=== PATIENT | female | born 1950 | race African-American/Black ===

== ENCOUNTER → 2017-10-10 | Outpatient (CLI) | payer MEDICARE | END | disposition home or self-care (01) | LOC: KCIC MAMMO 15:15 | DX: Z12.31 Encounter for screening mammogram for malignant neoplasm of breast (principal) | CPT/HCPCS: 77063; G0202 ==

== ENCOUNTER → 2017-10-21 | Outpatient (CLI) | payer MEDICARE | END | disposition home or self-care (01) | LOC: US 09:25 | DX: D35.00 Benign neoplasm of unspecified adrenal gland (principal); K76.0 Fatty (change of) liver, not elsewhere classified; N28.89 Other specified disorders of kidney and ureter | CPT/HCPCS: 76700 ==

== ENCOUNTER → 2017-10-27 | Outpatient (CLI) | payer MEDICARE | END | disposition home or self-care (01) | LOC: KCIC US 12:37 | DX: N63.20 Unspecified lump in the left breast, unspecified quadrant (principal) | CPT/HCPCS: 76641 ==

== ENCOUNTER → 2018-03-31 | Outpatient (CLI) | payer MEDICARE | END | disposition home or self-care (01) | LOC: KCIC US 08:35 | DX: N63.22 Unspecified lump in the left breast, upper inner quadrant (principal); R22.1 Localized swelling, mass and lump, neck | CPT/HCPCS: 76536; 76641 ==

== ENCOUNTER → 2018-09-22 | Outpatient (CLI) | payer MEDICARE ==
[2016-01-25 05:23] VITALS: BP 199/96
--- NOTE | 2018-09-22 15:31 | KCIC ---
DATE: 09/22/2018 EXAM: MAMMO LUIS BEN SILVER, left breast ultrasound HISTORY: Follow-up nodule COMPARISON: 10/10/2017 This study was interpreted with the benefit of Computerized Aided Detection (CAD). Breast Density: SCATTERED The breast parenchyma shows scattered fibroglandular densities. Breast parenchyma level B. FINDINGS: 2-D and 3-D tomosynthesis imaging was performed in CC and MLO projections. A small lobulated nodule is again noted in the left breast located just medial to the midline. It measures 8 mm on CC luis image #[id number]. It is stable to perhaps slightly decreased in size when compared to the 10/10/2017 exam. No new or enlarging breast densities are seen. Benign type calcifications are present. No suspicious microcalcifications have developed. Left breast ultrasound, 09/22/2018: A targeted ultrasound exam of the left breast was performed and compared to the prior exam of 03/31/2018. A well-defined bilobed hypoechoic structure is again noted at the 10:00 location proximal to 7 cm from the nipple. There are low level internal echoes with posterior acoustic enhancement. No internal blood flow is seen. This process is wider than tall. This probably represents a cluster of complicated cysts. It has shown no significant change measuring approximately 8 x 4 x 4 mm. No other abnormality is seen in this region of the left breast. IMPRESSION: 1. Stable benign-appearing left breast nodule. Sonographic follow-up in 6 months and bilateral mammography at one year is suggested. 2. No mammographic evidence of malignancy in either breast. BI-RADS CATEGORY: 3 PROBABLY BENIGN FINDING(S)-SHORT INTERVAL FOLLOW-UP SUGGESTED RECOMMENDED FOLLOW-UP: 6M 6 MONTH FOLLOW-UP PQRS compliance statement: Patient information was entered into a reminder system with a target due date for the next mammogram. Mammography is a sensitive method for finding small breast cancers, but it does not detect them all and is not a substitute for careful clinical examination. A negative mammogram does not negate a clinically suspicious finding and should not result in delay in biopsying a clinically suspicious abnormality. "Our facility is accredited by the [employer] Mammography [employer]."
== END | disposition home or self-care (01) ==
LOC: KCIC MAMMO 08:24
PROVIDERS: ATTEND Family Medicine
DX: R92.8 Other abnormal and inconclusive findings on diagnostic imaging of breast (principal)
CPT/HCPCS: 76641; 77066; G0279; 77062

== ENCOUNTER → 2018-11-18 | Outpatient (CLI) | payer MEDICARE ==
[2016-01-25 05:23] VITALS: BP 199/96
--- NOTE | 2018-11-18 12:12 | KCIC ---
2 view left tibia and fibula 11/18/2017 CLINICAL INDICATION: Left leg pain, chronic pain. COMPARISON: None. FINDINGS: No acute fracture or traumatic malalignment of the tibia or fibular diaphyses. The visualized soft tissues are unremarkable. Mild medial tibiotalar osteoarthritis with osteophytic spurring and joint space narrowing. The visualized soft tissues are unremarkable. IMPRESSION: No acute osseous abnormality. Electronically signed by: Griffin Osborne MD (11/18/2018 12:07 PM) [facility]
== END | disposition home or self-care (01) ==
LOC: KCIC 10:38
PROVIDERS: ATTEND Family Medicine
DX: M19.072 Primary osteoarthritis, left ankle and foot (principal)
CPT/HCPCS: 73590

== ENCOUNTER → 2019-03-11 | Outpatient (CLI) | payer MEDICARE ==
[2016-01-25 05:23] VITALS: BP 199/96
--- NOTE | 2019-03-11 13:13 | KCIC ---
EXAM: CT Abdomen without IV contrast CLINICAL HISTORY: Right adrenal mass, post right adrenalectomy.. COMPARISON: none TECHNIQUE: Helical CT of the abdomen without intravenous contrast. Axial, coronal and sagittal reformatted images were generated. PQRS compliance statement - One or more of the following individualized dose reduction techniques were utilized for this study: 1. Automated exposure control 2. Adjustment of the mA and/or kV according to patient size 3. Use of iterative reconstruction technique FINDINGS: Lack of intravenous contrast limits evaluation of solid organs, vasculature, and lymph nodes. Lower chest: Right lower lobe calcified granuloma. Abdomen: Spleen is unremarkable. No focal liver lesion. High density material layering dependently within the gallbladder likely sludge. No biliary ductal dilatation. Pancreas is unremarkable. Left adrenal gland is normal. There has been resection of the right adrenal gland. The residual or recurrent mass is seen within the right adrenal fossa. No focal renal lesion. No hydronephrosis. No hydroureter. Suture line is seen along the greater curvature of the stomach, postsurgical. Small hiatal hernia. Moderate colonic stool content is seen within the visualized portion of the bowel. The visualized small and large bowel remain normal in caliber. Bones: Degenerative changes of the spine are seen. No aggressive osseous lesion is noted. Anterolisthesis of L4 on L5. IMPRESSION: The right adrenal gland has been resected without residual or recurrent mass in the surgical bed. Electronically signed by: Nehemiah Carpenter MD (03/11/2019 1:10 PM) [id number]
== END | disposition home or self-care (01) ==
LOC: KCIC CT 11:10
PROVIDERS: ATTEND Family Medicine
DX: K44.9 Diaphragmatic hernia without obstruction or gangrene (principal); J84.10 Pulmonary fibrosis, unspecified; M47.819 Spondylosis without myelopathy or radiculopathy, site unspecified; M43.16 Spondylolisthesis, lumbar region; E89.6 Postprocedural adrenocortical (-medullary) hypofunction; Z86.018 Personal history of other benign neoplasm
CPT/HCPCS: 74150

== ENCOUNTER → 2019-06-07 | Outpatient (CLI) | payer MEDICARE ==
[2016-01-25 05:23] VITALS: BP 199/96
--- NOTE | 2019-06-07 15:23 | KCIC ---
Left breast ultrasound: Reason for examination: Follow-up nodules. Comparison is made to previous studies dated 09/22/2018, 03/31/2018 and 10/27/2017. Ultrasound examination was performed with attention to the area of previous concern and the axilla. In the 10:00 position 7 cm from the nipple, there continues to be 7.9 mm bilobed cystic lesion which is unchanged. No new cystic or solid nodules are seen. No abnormal appearing lymph nodes are seen in the axilla. IMPRESSION: Bilobed cystic lesion at the 10:00 position without interval change. Recommend routine mammographic follow-up. BI-RADS Category 2: Benign. "Our facility is accredited by the [employer] Mammography Program." This patient's information has been entered into a reminder system for the patient to be notified with the results of her examination and a target date for the next mammogram. Electronically signed by: Keely Glover MD (06/07/2019 3:20 PM) [id number]
== END | disposition home or self-care (01) ==
LOC: KCIC US 13:19
PROVIDERS: ATTEND Family Medicine
DX: N64.89 Other specified disorders of breast (principal)
CPT/HCPCS: 76641

== ENCOUNTER → 2019-09-29 | Outpatient (CLI) | payer MEDICARE ==
[2016-01-25 05:23] VITALS: BP 199/96
--- NOTE | 2019-09-29 16:18 | KCIC ---
Bone densitometry 09/29/2019 9:00 AM Indication: Postmenopausal syndrome Comparison Study: Bone densitometry September 23, 2016. Discussion: Bone Densitometry was performed with dual photon absorption of the lumbar spine and proximal left femur. Lumbar Spine: Bone average density is 1.410g/cm2 for L1-L4. T-Score is 3.3. (Prior T score 3.5) Left proximal femur: Bone average density is 1.116g/cm2. T-Score is 1.4. (Prior T score 1.8) IMPRESSION: Normal bone mineral density Note: Definitions established by the World Health Organization: Normal: T-score is -1.0 or above. Osteopenia: T-score is between -1.0 and -2.5. Osteoporosis: T-score is -2.5 or below. Electronically signed by: Elian Solis MD (09/29/2019 4:15 PM) [id number]
== END | disposition home or self-care (01) ==
LOC: KCIC DEXA 09:08
PROVIDERS: ATTEND Family Medicine
DX: Z13.820 Encounter for screening for osteoporosis (principal); Z78.0 Asymptomatic menopausal state
CPT/HCPCS: 77080

== ENCOUNTER → 2020-01-04 | Outpatient (CLI) | payer MEDICARE ==
[2016-01-25 05:23] VITALS: BP 199/96
--- NOTE | 2020-01-04 10:57 | KCIC ---
AP and Lateral Views of the Chest 01/04/2020 12:00 AM Indication: Fever, chills, cough. Comparison: Chest radiograph June 25, 2017 Findings: There is no focal consolidation or infiltrate identified. The cardiomediastinal silhouette is within normal limits. There is no evidence of pneumothorax or pleural effusion. No acute osseous abnormalities are identified. Impression: No evidence of acute cardiopulmonary process. Electronically signed by: Elian Solis MD (01/04/2020 10:54 AM) [id number]
== END | disposition home or self-care (01) ==
LOC: KCIC 10:16
PROVIDERS: ATTEND Family Medicine
DX: R50.9 Fever, unspecified (principal); R05 Cough
CPT/HCPCS: 71046

== ENCOUNTER → 2020-04-13 | Outpatient (CLI) | payer MEDICARE ==
[2016-01-25 05:23] VITALS: BP 199/96
--- NOTE | 2020-04-13 14:31 | RAD ---
DATE: 04/13/2020 1:41 PM EXAM: DIGITAL DIAGNOSTIC BILATERAL HISTORY: 69-year-old woman due for screening presents for follow-up of left breast findings by request of her referring physician. COMPARISON: Bilateral mammograms of 10/10/2017 and 09/22/2018 along with left breast ultrasound of 06/07/2019 TECHNIQUE: Bilateral CC and MLO views of the breasts were performed. Bilateral breast tomosynthesis was performed in CC and MLO projections. This study was interpreted with the benefit of Computerized Aided Detection (CAD). FINDINGS: Breast Density: FATTY The Breast Parenchyma is primarily fatty replaced. Breast parenchyma level density A. The right mammogram is negative. Left mammogram shows marginal interval decrease in size of the bilobed mass in the medial left breast shown on prior ultrasound to be a bilobed cyst. Previously it measured 8 mm. Currently, it measures 6.6 mm. This is both benign morphologically and in interval change. Left breast is otherwise negative. No suspicious masses, microcalcifications or architectural distortion is present to suggest malignancy in either breast. The visualized axillae are unremarkable. IMPRESSION: No mammographic evidence of malignancy. BI-RADS CATEGORY: 2 BENIGN FINDING(S) RECOMMENDED FOLLOW-UP: 12M 12 MONTH FOLLOW-UP Annual screening mammography is recommended, unless clinically indicated sooner based on symptoms or change in physical exam. PQRS compliance statement: Patient information was entered into a reminder system with a target due date 04/14/2021 for the next mammogram. Mammography is a sensitive method for finding small breast cancers, but it does not detect them all and is not a substitute for careful clinical examination. A negative mammogram does not negate a clinically suspicious finding and should not result in delay in biopsying a clinically suspicious abnormality. "Our facility is accredited by the [employer] Mammography Program."
== END | disposition home or self-care (01) ==
LOC: MAMMO 13:34
PROVIDERS: ATTEND Family Medicine
DX: R92.2 Inconclusive mammogram (principal)
CPT/HCPCS: 77066